=== PATIENT | male | born 1960 | race Caucasian/White ===

== ENCOUNTER 2018-07-25 15:18 | Emergency (ER) | payer OTHER ==
[2018-07-25] MEDS ORDERED: NS 1,000 ML IV ONE (15:48)
--- NOTE | 2018-07-25 15:53 | EDPHY ---
H & P Time Seen by Provider: 07/25/18 15:43 HPI/ROS: HPI Abdominal pain, fever and chills. 58-year-old male by private vehicle. This patient reports that on Wednesday he developed fever with chills. He was otherwise asymptomatic. On Wednesday he had right upper quadrant and mid abdominal pain with radiation to the right upper quadrant of his abdomen described as a burning and aching pain. He reports that his roommate told him to drink some mint tea and he did this. His pain went away and he has not had pain since this time. No associated nausea or vomiting. No diarrhea. He has been constipated. Reports his last bowel movement was 2 days ago. He has not had any chest pain. He is feeling better at this time but was seen at an urgent care and was referred here for further evaluation. He wants to be worked up. I discussed obtaining an ultrasound to look at his gallbladder as well as blood work. He consents. ROS: Constitutional: As above. No weakness. Eyes: No discharge. No changes in vision. ENT: No sore throat. No nasal congestion or rhinorrhea. Respiratory: No cough. No shortness of breath. Cardiac: No chest pain, no palpitations. Gastrointestinal: As above, no vomiting, no diarrhea. Genitourinary: No hematuria. No dysuria or increased frequency with urination. Musculoskeletal: No back pain. No neck pain. No myalgias or arthralgias. Skin: No rashes. Neurological: No headache. No focal weakness or altered sensation. 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 Social history: Nonsmoker. No alcohol. Here by himself. Physical Exam: General Appearance: Alert, no distress. This patient is responding to questions appropriately and in full sentences. This patient appears well- hydrated and well-nourished. Eyes: Pupils equal and round no pallor or injection. No lid edema, erythema or injection. Respiratory: There are no retractions, lungs are clear to auscultation with good air movement bilaterally. Cardiovascular: Regular rate and rhythm. No murmur. Gastrointestinal: Abdomen is soft and nontender, no masses, bowel sounds normal. No focal tenderness at McBurney's point. No Goncalves sign. Neurological: Motor sensory function is grossly intact. Cranial nerves are normal. Gait is normal. Skin: Warm and dry, no rashes. Musculoskeletal: Neck is supple and nontender. Extremities are symmetrical. All joints range without pain or impingement. Psychiatric: No agitation. No depression. Database: EKG: EKG time is 4:15 p.m.; EKG shows a narrow complex normal sinus rhythm with a ventricular rate of 58. The [place], QRS, QT intervals are within normal limits. There are no ST-T wave changes indicative of ischemic or injury pattern. No evidence of right heart strain. Interpreted by me. Imaging: CT scan of abdomen and pelvis without contrast: The pancreatic head is inflamed. He has a fatty liver. The prostate is large. Staff radiologist recommends obtaining a lipase and right upper quadrant ultrasound imaging to evaluate the gallbladder and liver. Discussed results with Dr. Zohaib Romo. Right upper quadrant ultrasound: Hepatic steatosis noted. No coli lithiasis or evidence of cholecystitis. Benign appearing right renal cyst seen. Results were discussed with staff radiologist Dr. Zohaib Romo. Procedures: Emergency department course: Triage vital signs reviewed. He is mildly hypertensive. Vital signs are otherwise normal. He is afebrile. IV was placed. He was started on IV normal saline with 1 L to be given over the next hour. At this time he does not require any pain medications or antiemetics. 5:40 p.m., the patient was re-evaluated, resting comfortably at this time. Repeat abdominal exam is soft, nontender nondistended. I reviewed the results of his diagnostic workup thoroughly with him. He feels comfortable going home now and I feel he is safe for discharge. He may have a mild pancreatitis but his amylase and lipase are normal. See CT scan findings above. He will follow up with his primary care physician in the next 1-2 days for re-evaluation. Return to emergency department precautions were reviewed with him. All of his questions were answered. He was discharged from the emergency department in good condition. Differential Diagnosis: The differential diagnosis on this patient includes but is not limited to mild pancreatitis, biliary colic, viral syndrome. Serious bacterial infection, cholecystitis, bowel obstruction, pancreatitis unlikely. This represents a partial list of diagnoses considered. These considerations are based on history , physical exam, past history, reassessment and diagnostic testing. Smoking Status: Never smoked Constitutional: Initial Vital Signs Temperature (C) 36.6 C 07/25/18 15:31 Heart Rate 73 07/25/18 15:31 Respiratory Rate 18 07/25/18 15:31 Blood Pressure 153/102 H 07/25/18 15:31 O2 Sat (%) 93 07/25/18 15:31 O2 Delivery Mode Room Air Allergies/Adverse Reactions: No Known Allergies Allergy (Verified 07/25/18 15:30) Home Medications: Medication Instructions Recorded Lisinopril 06/26/13 Aspirin 81mg (OTC) 09/16/15 Fish Oil 09/16/15 Hydrochlorothiazide 09/16/15 Multi-Vitamin Daily 09/16/15 Medical Decision Making - Diagnostics Imaging Results: Imaging Impressions Abdomen/Pelvis CT 07/25/18 15:59 Impression: 1. There is no evidence of nephrolithiasis or obstructive uropathy. 2. Inflammation of the pancreatic head, with no bile duct dilatation. Correlation with serum lipase levels is suggested and follow-up contrast- enhanced CT imaging is suggested to assure resolution of these findings after appropriate treatment. While there is no cholelithiasis appreciated on the CT scan, sonography is more sensitive and could be considered. 3. Diffuse hepatic steatosis. 4. There is a 16 x 18 mm lower pole cortical-based hypodense cystic structure in the right kidney. Further evaluation with sonography is suggested. 5. Colonic diverticulosis, without active diverticulitis. 6. Prostatomegaly. 7. Bibasilar linear parenchymal fibrosis, similar to 2013. Attention: This CT examination is specifically designed to evaluate patients who are clinically suspected of having acute obstructive uropathy. This examination does not use radiographic contrast, and as such, provides only a limited evaluation of the abdomen, pelvis, and retroperitoneum. If there is further clinical suspicion for pathological conditions other than obstructive uropathy, a complete CT evaluation of the abdomen and pelvis utilizing intravenous, oral, and rectal contrast should be considered. Findings were discussed with Pedro Pablo Whitlock MD at 16:25, on 07/25/2018. Abdomen Ultrasound 07/25/18 16:30 Impression: 1. Hepatic steatosis. 2. No visible cholelithiasis or choledocholithiasis, with limited pancreatic assessment due to body habitus. 3. Benign appearing 2.4 cm right renal cyst. Findings called to the [facility] 07/25/2018 at 17:14. - Data Points Laboratory Results: 07/25/18 07/25/18 07/25/18 16:05 16:00 16:00 POC Sodium POC Potassium POC Chloride POC Total CO2 POC BUN POC Creatinine POC Glucose POC Calcium POC Total Bilirubin 1.2 mg/dL mg/dL (0.1-1.4) POC GGT 34 IU/L IU/L (5-65) POC AST 37 IU/L IU/L (17-59) POC ALT 28 IU/L IU/L (21-72) POC Alk Phosphatase 46 IU/L IU/L (38-126) POC Total Protein 8.4 g/dL H g/dL (6.3-8.2) POC Albumin 3.6 g/dL g/dL (3.5-5.0) POC Amylase 47 IU/L IU/L (30-110) Lipase 98 IU/L IU/L (23-300) Urine RBC 3-5 /hpf H /hpf (0-3) Urine WBC 1-3 /hpf /hpf (0-3) Ur Epithelial Cells TRACE /lpf /lpf (NONE-1+) Urine Bacteria TRACE /hpf H /hpf (NONE SEEN) Urine Mucus 1+ /lpf /lpf (NONE-1+) 07/25/18 15:51 POC Sodium 142 mEq/L mEq/L (135-145) POC Potassium 3.2 mEq/L L mEq/L (3.3-5.0) POC Chloride 104.0 mEq/L mEq/L (97-110) POC Total CO2 27 mEq/L mEq/L (22-31) POC BUN 19 mg/dL mg/dL (7-23) POC Creatinine 1.3 mg/dL mg/dL (0.7-1.3) POC Glucose 96 mg/dL mg/dL (70-100) POC Calcium 9.3 mg/dL mg/dL (8.5-10.4) POC Total Bilirubin POC GGT POC AST POC ALT POC Alk Phosphatase POC Total Protein POC Albumin POC Amylase Lipase Urine RBC Urine WBC Ur Epithelial Cells Urine Bacteria Urine Mucus Medications Given: Discontinued Medications Sodium Chloride (Ns) 1,000 mls @ 0 mls/hr IV EDNOW ONE; Wide Open PRN Reason: Protocol Stop: 07/25/18 15:49 Last Admin: 07/25/18 16:23 Dose: 1,000 mls Point of Care Test Results: CBC CBC Collection Date 07/25/18 CBC Collection Time 15:45 WBC 11.0 RBC 5.46 HGB 16.8 HCT 47.8 PLT 174 Neut # 8.2 Neut 74.1 LYMPH # 2.2 LYMPH 20.3 Other WBC # 0.6 Other WBC 5.6 MCV 87.5 Chemistry 07/25/18 07/25/18 16:05 15:51 POC Sodium 142 mEq/L mEq/L (135-145) POC Potassium 3.2 mEq/L L mEq/L (3.3-5.0) POC Chloride 104.0 mEq/L mEq/L (97-110) POC Total CO2 27 mEq/L mEq/L (22-31) POC BUN 19 mg/dL mg/dL (7-23) POC Creatinine 1.3 mg/dL mg/dL (0.7-1.3) POC Glucose 96 mg/dL mg/dL (70-100) POC Calcium 9.3 mg/dL mg/dL (8.5-10.4) POC Total Bilirubin 1.2 mg/dL mg/dL (0.1-1.4) POC GGT 34 IU/L IU/L (5-65) POC AST 37 IU/L IU/L (17-59) POC ALT 28 IU/L IU/L (21-72) POC Alk Phosphatase 46 IU/L IU/L (38-126) POC Total Protein 8.4 g/dL H g/dL (6.3-8.2) POC Albumin 3.6 g/dL g/dL (3.5-5.0) POC Amylase 47 IU/L IU/L (30-110) Liver Function Tests LFT Collection Date 07/25/18 LFT Collection Time 15:45 Urine Dip Collection Date 07/25/18 Collection Time 15:50 Specific [place] (1.002-1.030) 1.025 PH (5.0-7.5) 6.0 Leukocytes (Negative) Negative Nitrites (Negative) Negative Protein (Negative) Trace Glucose (Negative) Negative Ketones (Negative) 1+ Urobilnogen (0.2-1.0 EU) 0.2 Bilirubin (Negative) Negative Blood (Negative) 2+ Departure - Departure Disposition: Home, Routine, Self-Care Clinical Impression: Abdominal pain resolved, Viral syndrome, Pancreatitis Condition: Good Instructions: Acute Abdominal Pain (ED), Viral Syndrome (ED), Pancreatitis (ED) Additional Instructions: Read and follow provided instructions. Follow-up with your primary care physician in 1-2 days for re-evaluation as discussed. They will have access to our diagnostic workup and my notes here in the emergency department. Return to the emergency department for worsening symptoms or other serious concerns. Referrals: Daniel Norris MD [Primary Care Provider] - As per Instructions
[2018-07-25 17:48] VITALS: BP 134/78
--- NOTE | 2018-07-25 22:14 | CPEKG ---
Test Reason : OPEN Blood Pressure : / mmHG Vent. Rate : 058 BPM Atrial Rate : 059 BPM P-R Int : 153 ms QRS Dur : 090 ms QT Int : 422 ms P-R-T Axes : 007 -11 002 degrees QTc Int : 415 ms Sinus rhythm Confirmed by Pedro Pablo Whitlock ([id number]) on 07/25/2018 10:13:48 PM Referred By: Confirmed By:Pedro Pablo Whitlock
== END 2018-07-25 17:47 | disposition home or self-care (01) ==
LOC: CED 15:18
DX: B34.9 Viral infection, unspecified (principal); K85.90 Acute pancreatitis without necrosis or infection, unspecified; E86.9 Volume depletion, unspecified
CPT/HCPCS: 74176-PO; 76705-PO; 80048-ER; 80076-ER; 82150-ER; 96360-ER